=== PATIENT | female | born 1980 | race Caucasian/White ===

== ENCOUNTER 2017-01-19 09:21 | Inpatient (IN) | payer MEDICARE, OTHER ==
--- NOTE | ~2017-01-19 | PN ---
Unit #: [id number] #: [id number] Patient: CIRILO PATEL [id number] [facility] [address] [place] [address] [id number] I MR#: [id number] NAME: CIRILO PATEL. ROOM: [facility] Age: 36 Sex: F Admission Date: 01/19/2017 : 1980 Attending Physician: Da Espinoza M.D. Admitting Physician: Da Espinoza M.D. Primary Care Physician: Frida ADHIKARI PROGRESS NOTES DATE 01/21/2017 DISCUSSION Ms. Patel is a 36-year-old white female who was seen today and chart was reviewed and case was discussed with the staff. She has been anxious, withdrawn and rather seclusive to herself. Meanwhile, she has been cooperative with treatment recommendations as she has been taking the medications and tolerating them fairly well with no reported side effects though has been complaining of significant and persistent anxiety and also stated that she would like to go to intermediate rehab level of care after getting discharged from the hospital. MENTAL STATUS EXAMINATION Young white female who was casually dressed with fair personal hygiene, appears to be in no acute distress or discomfort. She was awake and alert on interaction with intact orientation. Her mood was anxious with congruent affect. She denies any suicidal or homicidal ideations. Also, denies any auditory or visual hallucinations. Her insight and judgement remains slightly impaired. TREATMENT PLAN 1. We will continue her on her current medications and treatment protocol. We will monitor her response and make further adjustments as needed. 2. We will continue to follow up. Dictated by... Naresh Max/samreen TD: 01/22/2017 00:09 JOB #: [id number] Unit #: [id number] #: [id number] Patient: CIRILO PATEL ONOFRE PROGRESS NOTES X Da Espinoza MD PROGRESS NOTE
--- NOTE | ~2017-01-19 | DS ---
Unit #: [id number] #: [id number] Patient: CIRILO PATEL [id number] [facility] [address] [place] [address] [id number] MR#: [id number] NAME: CIRILO PATEL. ROOM: P178 Age: 36 Sex: F Admission Date: 01/19/2017 : 1980 Discharge Date: Attending Physician: Da Espinoza M.D. Primary Care Physician: Frida Mayfield DISCHARGE SUMMARY IDENTIFYING DATA Ms. Patel is a 36-year-old single disabled white female who is a resident of [place], [place] and was self-referred to the hospital. DISCHARGE DIAGNOSES Psychiatric: Bipolar disorder, most recent episode depressed, recurrent, moderate, without psychotic features; opioid dependence, moderate and acute withdrawal. Medical: Gastroesophageal reflux disease. Stressors: Moderate psychosocial stressors. HISTORY OF PRESENT ILLNESS Please see initial psychiatric evaluation for details. PAST PSYCHIATRIC HISTORY Please see initial psychiatric evaluation for details. PAST MEDICAL HISTORY Please see initial psychiatric evaluation for details. HOSPITAL COURSE The patient was [facility] and was oriented to the hospital environment. Routine p.r.n. medications were initiated, and she was started on the detox protocol and was also started back on her home medications, and was closely monitored. She was initially seen to be anxious, restless, withdrawn, and rather seclusive to herself; however, she was able to come off the detox without any complications and then was expressing the desire to be able to go to a long-term rehab level of care and director social service were able to make a few refills; however, the patient was then seen to be going back and forth whether she was to fill it or not; however, she was wanting to go home and as such, it was decided that she will be discharged home and will continue treatment on an outpatient basis. DISCHARGE MEDICATIONS Effexor XR 75 mg a day for depression and trazodone 150 mg a day for sleep. DISCHARGE CONDITION Stable. PROGNOSIS Fair. Unit #: [id number] #: [id number] Patient: CIRILO PATEL Dictated by... Da Espinoza M.D. IAA/modl TD: 01/29/2017 07:07 JOB #: [id number] DISCHARGE SUMMARY X Da Espinoza MD DISCHARGE SUMMARY
--- NOTE | ~2017-01-19 | PN ---
Unit #: [id number] #: [id number] Patient: CIRILO PATEL [id number] [facility] [address] [place] [address] [id number] I MR#: [id number] NAME: CIRILO PATEL. ROOM: P178 Age: 36 Sex: F Admission Date: 01/19/2017 : 1980 Attending Physician: Da Espinoza M.D. Admitting Physician: Da Espinoza M.D. Primary Care Physician: Frida Mayfield [facility] PROGRESS NOTES DATE January 23, 2017 DISCUSSION Ms. Patel is a 36-year-old white female, who was seen today and chart was reviewed and the case was discussed with the staff. She has been anxious, withdrawn, and rather seclusive to herself. Meanwhile, she has been cooperative with the treatment recommendations and she has been taking the medications and tolerating them fairly well. MENTAL STATUS EXAMINATION Young white female, who was casually dressed with fair personal hygiene and appears to be in no acute distress or discomfort. The patient was awake and alert on interaction with intact orientation. Her mood was anxious with a congruent affect. The patient denies any suicidal or homicidal ideations. Her insight and judgment remain slightly impaired. TREATMENT PLAN 1. We will continue her on her current medications and treatment protocol, and will monitor her response to the medications, and make further adjustments as needed. 2. We will continue to followup. Dictated by... Naresh Max/tata TD: 01/25/2017 07:49 JOB #: [id number] [facility] PROGRESS NOTES X Da Espinoza MD PROGRESS NOTE
--- NOTE | ~2017-01-19 | PN ---
Unit #: [id number] #: [id number] Patient: CIRILO PATEL [id number] [facility] [address] [place] [address] [id number] I MR#: [id number] NAME: CIRILO PATEL ROOM: P178 Age: 36 Sex: F Admission Date: 01/19/2017 : 1980 Attending Physician: Da Espinoza M.D. Admitting Physician: Da Espinoza M.D. Primary Care Physician: Frida Mayfield [facility] PROGRESS NOTES DATE January 26, 2017 DISCUSSION Ms. Patel is a 36-year-old white female, who was seen today and chart was reviewed and the case was discussed with the staff. She has been anxious, withdrawn, and father seclusive to herself. Meanwhile, she has been cooperative with the treatment recommendations and she has been taking the medications and tolerating them fairly well with no reported side effects. MENTAL STATUS EXAMINATION Young white female, who was casually dressed with fair personal hygiene and appears to be in no acute distress or discomfort. She was awake and alert on interaction with intact orientation. Her mood was anxious with a congruent affect. The patient denies any suicidal or homicidal ideations. Her insight and judgment remain slightly impaired. TREATMENT PLAN 1. We will continue her on her current medications and treatment protocol, and will monitor her response to the medications, and make further adjustments as needed. 2. We will continue to followup. Dictated by... Naresh Max/tata TD: 01/27/2017 11:38 JOB #: [id number] [facility] PROGRESS NOTES X Da Espinoza MD PROGRESS NOTE
--- NOTE | ~2017-01-19 | PN ---
Unit #: [id number] #: [id number] Patient: CIRILO PATEL [id number] [facility] [address] [place] [address] [id number] I MR#: [id number] NAME: CIRILO PATEL. ROOM: P1 Age: 36 Sex: F Admission Date: 01/19/2017 : 1980 Attending Physician: Da Espinoza M.D. Admitting Physician: Da Espinoza M.D. Primary Care Physician: Frida ANNACE PROGRESS NOTES DATE 01/28/2017 DISCUSSION Ms. Patel is a 36-year-old white female who was seen today and chart was reviewed and case was discussed with the staff. She has been anxious, withdrawn and seclusive to herself. Meanwhile, she has been polite and pleasant and cooperative with treatment recommendations as she has been taking the medications and tolerating them fairly well. MENTAL STATUS EXAMINATION Young white female who was casually dressed with fair personal hygiene, appears to be in no acute distress or discomfort. She was awake and alert on interaction with intact orientation. Her mood was anxious with congruent affect. Her speech was slow and goal-directed. She denies any suicidal or homicidal ideations. Also, denies any auditory or visual hallucinations. Her insight and judgement remains slightly impaired. TREATMENT PLAN 1. We will continue her on her current treatment protocol. We will monitor her response to the medication and make further adjustments as needed. 2. We will continue to follow up. Dictated by... Naresh Max/samreen TD: 01/29/2017 01:52 JOB #: [id number] Unit #: [id number] #: [id number] Patient: CIRILO PATEL PEAYAYO PROGRESS NOTES X Da Espinoza MD PROGRESS NOTE
--- NOTE | ~2017-01-19 | PN ---
Unit #: [id number] #: [id number] Patient: CIRILO PATEL [id number] [facility] [address] [place] [address] [id number] I MR#: [id number] NAME: CIRILO PATEL. ROOM: P1 Age: 36 Sex: F Admission Date: 01/19/2017 : 1980 Attending Physician: Da Espinoza M.D. Admitting Physician: Da Espinoza M.D. Primary Care Physician: Frida ADHIKARI PROGRESS NOTES DATE January 27, 2017 DISCUSSION Ms. Patel is a 36-year-old white female, who was seen today and chart was reviewed and the case was discussed with the staff. She has been anxious, withdrawn, and rather seclusive to herself. Meanwhile, she has been cooperative with the treatment recommendations and she has been taking the medications and tolerating them fairly well with no reported side effects. MENTAL STATUS EXAMINATION Young white female, who was casually dressed with fair personal hygiene and appears to be in no acute distress or discomfort. She was awake and alert on interaction with intact orientation. Her mood was anxious and depressed with a congruent affect. Her speech is slow and goal-directed. The patient denies any suicidal or homicidal ideations, and also denies any auditory or visual hallucinations. Her insight and judgment remain slightly impaired. TREATMENT PLAN 1. We will continue her on her current medications and treatment protocol, and will monitor her response to the medications, and make further adjustments as needed. 2. We will continue to followup. Dictated by... Naresh Max/tata TD: 01/28/2017 08:07 JOB #: [id number] Unit #: [id number] #: [id number] Patient: CIRILO PATEL ONOFRE PROGRESS NOTES X Da Espinoza MD PROGRESS NOTE
--- NOTE | ~2017-01-19 | PN ---
Unit #: [id number] #: [id number] Patient: CIRILO PATEL [id number] [facility] [address] [place] [address] [id number] I MR#: [id number] NAME: CIRILO PATEL. ROOM: [facility] Age: 36 Sex: F Admission Date: 01/19/2017 : 1980 Attending Physician: Da Espinoza M.D. Admitting Physician: Da Espinoza M.D. Primary Care Physician: Frida ADHIKARI PROGRESS NOTES DATE OF SERVICE: 01/20/2017 SUBJECTIVE Ms. Patel is a 36-year-old white female with dual diagnosis of mood disorder and substance abuse, who was seen today and chart was reviewed and the case was discussed with the staff. She was seen to be anxious, withdrawn, depressed, and rather seclusive to herself. Meanwhile, she has been cooperative with the treatment recommendations and has been taking the medications and tolerating them fairly well with no reported side effects. MENTAL STATUS EXAMINATION Young white female, who was casually dressed with fair personal hygiene, appears to be in slight distress and discomfort. She was awake and alert with impaired attention and concentration. Her mood was anxious with a congruent affect. Her speech was slow and restricted in content. She reports having suicidal ideation, but denies any homicidal ideation. Her insight and judgment remain slightly impaired. TREATMENT PLAN 1. We will continue her on her current medications and treatment protocol. We will monitor her response to the medications and make further adjustments as needed. 2. We will continue to follow up. Dictated by... Naresh Max/arleth TD: 01/20/2017 11:23 JOB #: [id number] Unit #: [id number] #: [id number] Patient: CIRILO PATELYAYO PROGRESS NOTES X Da Espinoza MD PROGRESS NOTE
--- NOTE | ~2017-01-19 | PN ---
Unit #: [id number] #: [id number] Patient: CIRILO PATEL [id number] [facility] [address] [place] [address] [id number] I MR#: [id number] NAME: CIRILO PATEL. ROOM: P178 Age: 36 Sex: F Admission Date: 01/19/2017 : 1980 Attending Physician: Da Espinoza M.D. Admitting Physician: Da Espinoza M.D. Primary Care Physician: Frida Mayfield [facility] PROGRESS NOTES DATE 01/24/2017 DISCUSSION Ms. Patel is a 36-year-old white female who was seen today and chart was reviewed and case was discussed with the staff. She has been anxious, withdrawn and rather seclusive to herself though has been cooperative with treatment recommendations as she has been taking the medications and tolerating them fairly well. MENTAL STATUS EXAMINATION Young white female who was casually dressed with fair personal hygiene, appears to be in no acute distress or discomfort. She was awake and alert on interaction with intact orientation. Her mood was anxious and depressed with congruent affect. Her speech was slow and goal-directed. She denies any suicidal or homicidal ideations. Also, denies any auditory or visual hallucinations. Her insight and judgement remains slightly impaired. TREATMENT PLAN 1. We will continue her on her current medications and treatment protocol. We will monitor her response to the medication and make further adjustments as needed. 2. We will continue to follow up. Dictated by... Naresh Max/samreen TD: 01/26/2017 02:09 JOB #: [id number] Unit #: [id number] #: [id number] Patient: CIRILO PATEL [facility] PROGRESS NOTES X Da Espinoza MD PROGRESS NOTE
--- NOTE | ~2017-01-19 | HP ---
Unit #: [id number] #: [id number] Patient: DARLIN PATEL [id number] [place] [address] [id number] I MR#: [id number] NAME: DARLIN PATEL. ROOM: [facility] Age: 36 Sex: F Admission Date: 01/19/2017 : 1980 Attending Physician: Da Espinoza M.D. Admitting Physician: Da Espinoza M.D. Primary Care Physician: Frida Mayfield HISTORY AND PHYSICAL HISTORY OF PRESENT ILLNESS Darlin is a 36 year old admitted to [facility] because of her continued polysubstance abuse. PAST MEDICAL HISTORY 1. Long history of illicit substance abuse. 2. GERD. 3. History of interstitial cystitis. PAST SURGICAL HISTORY 1. Appendectomy. 2. Pelvic lap x2. 3. Right foot. ALLERGIES Demerol, Haldol. SOCIAL HISTORY Smokes one pack per day. Drinks alcohol on occasion. Has a long history of opioid abuse to include heroin. FAMILY HISTORY Medically noncontributory. REVIEW OF SYSTEMS CONSTITUTIONAL: No fever or chills. HEENT: Denies any sore throat, ear pain or runny nose. CARDIOVASCULAR: Denies chest pain, irregular heart rhythm or palpitations. CHEST: Denies shortness of breath or cough. No hemoptysis. GASTROINTESTINAL: Denies nausea, vomiting, diarrhea or chronic constipation. ENDOCRINE: Denies history of increased thirst or urination. No recent significant weight loss or gain. GENITOURINARY: Denies dysuria, frequency, or hematuria. SKIN: Denies any rashes. HEMATOLOGIC: Denies history of increased bleeding or bruising. MUSCULOSKELETAL: Denies any hot, swollen joints. No generalized muscle pain. NEUROLOGIC: Denies problems with vision or speech. No frequent, severe headaches. No numbness, tingling or weakness in any extremities. Denies loss of bladder or bowel control. CURRENT MEDICATIONS Unit #: [id number] #: [id number] Patient: DARLIN PATEL 1. Detox protocol. 2. Effexor XR 75 mg q. day. 3. Trileptal 300 mg b.i.d. 4. Pepcid 20 mg b.i.d. 5. Trazodone 150 mg q.h.s. 6. Nicotine patch 14 mg q. day. PHYSICAL EXAMINATION GENERAL: Alert, well nourished. No apparent distress. VITAL SIGNS: Blood pressure 122/84, heart rate 100, respirations 16, and temperature 98.6. WEIGHT: 145. HEIGHT: 5 feet 6 inches. SKIN: Warm and dry without rash or lesion. HEENT: Normocephalic. TMs not viewed. Oral and nasal passages clear. Conjunctivae clear. PERRLA. EOMs intact. NECK: Supple without lymphadenopathy or thyromegaly. HEART: Regular rate and rhythm without murmur. LUNGS: Clear. ABDOMEN: Soft, nontender. : Not done. EXTREMITIES: No evidence of cyanosis, clubbing or edema. Moves all without focal deficit. NEUROLOGICAL: Grossly within normal limits. Cranial Nerves: II: Visual giron are intact. III, IV AND : Extraocular movements are intact. Pupils are equal, round and reactive to light. V: Facial sensation is grossly normal. VII: Facial movements and expression are normal. VIII: Auditory acuity grossly intact. IX, X: Uvula is midline. Phonation is normal. XI: Patient shrugs shoulders and turns head normally. XII: Tongue protrudes in the midline. Sensory and Motor Function: Sensory and motor sensation is grossly normal. Motor: moves all extremities well. Coordination: Gait is normal. Deep Tendon Reflexes: Intact. IMPRESSION Psychiatric admission. RECOMMENDATIONS PSYCHIATRIC: Per psychiatrist. MEDICAL: I see no contraindication to participate in this facility's activities. MEDICAL PROGNOSIS Good. MEDICAL CONDITION Stable. Dictated by... Surinder VegaAAlem-Kezia. for Naresh Alex/ruth Unit #: [id number] #: [id number] Patient: DARLIN PATEL TD: 01/20/2017 12:07 JOB #: [id number] HISTORY AND PHYSICAL X Ermelinda Neal X HISTORY AND PHYSICAL
--- NOTE | ~2017-01-19 | PN ---
Unit #: [id number] #: [id number] Patient: CIRILO PATEL [id number] [facility] [address] [place] [address] [id number] MR#: [id number] NAME: CIRILO PATEL. ROOM: [facility] Age: 36 Sex: F Admission Date: 01/19/2017 : 1980 Attending Physician: Da Espinoza M.D. Admitting Physician: Da Espinoza M.D. Primary Care Physician: Frida ANNACE PROGRESS NOTES DATE 01/22/2017 DISCUSSION Ms. Patel is a 36-year-old white female who was seen today and chart was reviewed and case was discussed with the staff. She has been anxious, restless, withdrawn, reports still having some significant withdrawal symptoms stating that her muscles are twitching and jerking and her body is hurting and she has been anxious and restless. Meanwhile, she has also expressed a desire to be able to go to long-term rehabilitation level of care and to start planning has been advised accordingly. MENTAL STATUS EXAMINATION Young white female who was casually dressed with fair personal hygiene and appears to be in no acute distress or discomfort. She was awake and alert on interaction with intact orientation. Her mood was anxious with congruent affect. She denies any suicidal or homicidal ideation and also denies any auditory or visual hallucinations. Her insight and judgement remains slightly impaired. TREATMENT PLAN 1. Will continue on current medications and treatment protocol. Will monitor her response to the medications and make further adjustments as needed. 2. Will continue to follow up. Dictated by... Naresh Max/pierce TD: 01/22/2017 16:08 JOB #: [id number] Unit #: [id number] #: [id number] Patient: CIRILO PATELYAYO PROGRESS NOTES X Da Espinoza MD PROGRESS NOTE
--- NOTE | ~2017-01-19 | PN ---
Unit #: [id number] #: [id number] Patient: CIRILO PATEL [id number] [facility] [address] [place] [address] [id number] I MR#: [id number] NAME: CIRILO PATEL. ROOM: P178 Age: 36 Sex: F Admission Date: 01/19/2017 : 1980 Attending Physician: Da Espinoza M.D. Admitting Physician: Da Espinoza M.D. Primary Care Physician: Frida Mayfield [facility] PROGRESS NOTES DATE OF SERVICE: 01/25/2017 SUBJECTIVE Ms. Patel is a 36-year-old white female, who was seen today and chart was reviewed and the case was discussed with the staff. She has been anxious, withdrawn, and restless, and seclusive to herself. Her detox has fallen off which is persistent detox symptoms. Meanwhile, she has been cooperative with treatment recommendations and has been taking the medications and tolerating them fairly well. MENTAL STATUS EXAMINATION Young white female, who was casually dressed with fair personal hygiene, appears to be in no acute distress or discomfort. She was awake and alert on interaction with intact orientation. Her mood was anxious with a congruent affect. She denies any suicidal or homicidal ideations, and also denies any auditory or visual hallucinations. Her insight and judgment remain slightly impaired. TREATMENT PLAN 1. We will continue her on her current medications and treatment protocol. We will monitor her response to medications and make further adjustments as needed. 2. We will continue to follow up. Dictated by... Naresh Max/arleth TD: 01/26/2017 05:14 JOB #: [id number] [facility] PROGRESS NOTES X Da Espinoza MD PROGRESS NOTE
--- NOTE | ~2017-01-19 | PA ---
Unit #: [id number] #: [id number] Patient: CIRILO PATEL [id number] [facility] [address] [place] [address] [id number] MR#: [id number] NAME: CIRILO PATEL. ROOM: P177 Age: 36 Sex: F Admission Date: 01/19/2017 : 1980 Date of Assessment: Attending Physician: Da Espinoza M.D. Admitting Physician: Da Espinoza M.D. Primary Care Physician: Frida Mayfield PSYCHIATRIC ASSESSMENT DATE OF SERVICE 01/19/2017. IDENTIFYING DATA Ms. Patel is a 36-year-old single disabled white female, who is a resident of [place], [place] and is known to us from previous encounter and was self-referred to the hospital. CHIEF COMPLAINT "I need to detox." HISTORY OF PRESENT ILLNESS Ms. Patel is a 36-year-old white female who was ruled out for mood disorder, substance abuse dependence, who was self-referred to the hospital. Reports that she has been using heroin daily for the past 3 months and has been using at least a gram a day via IV route and has been using IV for the last 4 months and that she has been addicted to heroin for the past 3 years and reports her longest period of sobriety was 7 months, which was last and reports that her last use of heroin was 2 hours before coming to the hospital and added that she is very depressed and has been having suicidal thoughts and she stated "I'm tired of using, I'm tired of the cycle." The patient reports that her drug use makes her depressed and suicidal and that she has been feeling suicidal on and off for about a week. The patient reports increasing depression, anxiety, disturbed sleep, psychomotor retardation, feelings of hopelessness and helplessness, and suicidal ideation with plan to overdose on heroin. The patient reports that she wants to get clean due to seeing her boyfriend overdose and it has scared her and also reports that she is sick of the lifestyle and what has done to her life. Reports that she does have a support group of friends who are sober. SUBSTANCE ABUSE HISTORY The patient reports history of alcohol, cannabis, cocaine, acid, opioids, amphetamine abuse, and currently opioids, particularly IV heroin has been her drug of choice. PAST PSYCHIATRIC HISTORY The patient has had history of inpatient psychiatric hospitalization at [facility] and has done outpatient treatment program. Review of the medical records indicate that she has been diagnosed and treated for bipolar disorder and was on a combination of Effexor and Trileptal, but has been noncompliant with medication as such, has been decompensating. Unit #: [id number] #: [id number] Patient: CIRILO PATEL PAST MEDICAL HISTORY Gastroesophageal reflux disease. ALLERGIES Haldol and meperidine. PERSONAL AND SOCIAL HISTORY A 36-year-old white female, who reports that she is single, unemployed, disabled, and lives by herself and has poor social support system. MENTAL STATUS EXAMINATION Young white female, who was casually dressed with fair personal hygiene, appears to be in no acute distress or discomfort. She was awake and alert on interaction with intact orientation to time, place, and person. Her mood was anxious and depressed with a congruent affect. Her speech was slow and restricted in content. Her thought processes were disorganized with some looseness of associations and suicidal ideations. Her insight and judgment remain significantly impaired. DIAGNOSTIC IMPRESSION Psychiatric: Bipolar disorder, most recent episode depressed, recurrent, moderate, without psychotic features; opioid dependence, moderate and acute withdrawals. Medical: Gastroesophageal reflux disease. Stressors: Moderate psychosocial stressors. TREATMENT PLAN 1. The patient has presented with a history of mood disorder and substance abuse and dependence and has been decompensating and will need inpatient hospitalization for detoxification, safety, and stabilization. We will start her on detox protocol. We will also consider starting her back on her home medications. 2. Supportive therapy was provided to the patient. 3. Safe, structured, and nourishing environment will be reported. ESTIMATED LENGTH OF STAY 5 to 7 days. ABILITY TO HELP SELF Limited. WILLINGNESS TO HELP SELF The patient appears to be willing to help self. STRENGTHS 1. Communicative. 2. Cooperative. PROBLEMS 1. Chronic dysphoric symptoms. 2. Poor social support system. DISCHARGE CRITERIA This will be contingent upon the patient's ability to go through detox without having any significant withdrawal symptoms as well as her ability to stay safe to herself, particularly after discharge from the hospital. Unit #: [id number] #: [id number] Patient: CIRILO PATEL Dictated by..Naresh Escamilla/arleth TD: 01/20/2017 06:38 JOB #: [id number] PSYCHIATRIC ASSESSMENT X Da Espinoza MD PSYCHIATRIC ASSESSMENT
[2017-01-20 12:34] LABS: BASOPHIL# 0.1 X10e3 (0-0.3); BASOPHIL% 1.4 % (0-2.5); EOSINOPHIL# 0.2 X10e3 (0-0.7); EOSINOPHIL% 2.9 % (0.0-7.0); HEMATOCRIT 48.7 % (35.0-45.0); HEMOGLOBIN 15.9 gm/dL (12.0-16.0); LYMPHOCYTE# 1.9 X10e3 (1.0-3.5); LYMPHOCYTE% 27.5 % (17.0-45.0); MEAN CELL VOLUME 91.8 FL (83-96); MEAN CORPUSCULAR HGB CONC 32.7 g/dL (30-36); MEAN PLATELET VOLUME 8.6 FL (6.5-11.5); MONOCYTE# 0.5 X10e3 (0-1.0); MONOCYTE% 7.7 % (3.0-12.0); NEUTROPHIL# 4.2 X10e3 (1.5-7.1); NEUTROPHIL% 60.5 % (40-75); PLATELET COUNT 289 X10e3 (140-420); RED BLOOD COUNT 5.31 X10e (3.90-5.30); RED CELL DISTRIBUTION WIDTH 15.1 % (11.0-15.5)
[2017-01-20 12:41] LABS: DIFF IND NO
[2017-01-20 12:56] LABS: THYROID STIMULATING HORMONE 0.63 uIU/ml (0.34-5.60)
[2017-01-20 12:57] LABS: ALBUMIN SERUM 3.9 g/dL (3.5-5.0); ALKALINE PHOSPHATASE 82 U/L (32-92); ALT (SGPT) 18 U/L (10-40); AST (SGOT) 20 U/L (10-42); BILIRUBIN,TOTAL 0.3 mg/dL (0.2-2.0); BLOOD UREA NITROGEN 9 mg/dL (9-23); BUN/CREATININE RATIO 11.25; CALCIUM SERUM 9.2 mg/dL (8.4-10.2); CARBON DIOXIDE 26 mmol/L (22-31); CHLORIDE 104 mmol/L (100-111); CREATININE SERUM 0.8 mg/dL (0.6-1.4); GLOM FILT RATE Estimated ABOVE60 mL/min (>60); GLUCOSE FASTING 80 mg/dL (70-110); POTASSIUM 4.3 mmol/L (3.5-5.1); PROTEIN TOTAL SERUM 6.6 g/dL (6.0-8.3); SODIUM 137 mmol/L (135-145)
[2017-01-20 13:02] LABS: FREE THYROXIN (T4) 0.99 ng/dL (0.58-1.64)
[2017-01-21 09:51] LABS: URINE APPEARANCE CLEAR; URINE BILIRUBIN NEG (NEG); URINE BLOOD NEG (NEG); URINE COLOR YELLOW; URINE GLUCOSE NEG (NEG); URINE KETONE NEG (NEG); URINE LEUKOCYTE ESTERASE NEG (NEG); URINE NITRATE NEG (NEG); URINE PROTEIN NEG (NEG); URINE SPECIFIC GRAVITY 1.009 (1.003-1.035); URINE UROBILINOGEN 0.2 MG/DL (NEG)
[2017-01-21 10:18] LABS: AMPHETAMINE NEG (NEG); BARBITURATES NEG (NEG); BENZODIAZEPINES NEG (NEG); COCAINE NEG (NEG); MARIJUANA NEG (NEG); OPIATES POS (NEG); TRICYCLIC ANTIDEPRESSANTS NEG (NEG); U METHADONE NEG (NEG)
[2017-01-24 01:12] LABS: HA AB IGM (HEPPAN) Nonreactive (Nonreactive); HB CORE AB IGM (HEPPAN) Nonreactive (Nonreactive); HB S AG (HEPPAN) Nonreactive (Nonreactive); HEP C AB (HEPPAN) Nonreactive (Nonreactive); HEP C AB SIGNAL TO CUTOFF 0.01 ratio (<1.00)
== END 2017-01-29 09:30 | DRG 885 ==
LOC: POF 09:21 → P1E 09:25
PROVIDERS: Psychiatry & Neurology Psychiatry
PROC: HZ2ZZZZ Detoxification Services for Substance Abuse Treatment (ICD-10-PCS; principal; 2017-01-19)
DX: F31.32 Bipolar disorder, current episode depressed, moderate (principal); F11.23 Opioid dependence with withdrawal; K21.9 Gastro-esophageal reflux disease without esophagitis; F17.210 Nicotine dependence, cigarettes, uncomplicated
CPT/HCPCS: 80053; 80074; 80307; 81003; 84439; 84443; 84703; 85025; 86592; 87806

== ENCOUNTER 2017-01-29 15:05 | Emergency (ER) | payer MEDICARE, OTHER | END 2017-01-29 15:30 | disposition left against medical advice (07) | LOC: CED 15:05 | DX: Z53.21 Procedure and treatment not carried out due to patient leaving prior to being seen by health care provider (principal) ==

== ENCOUNTER 2017-03-22 11:50 | Inpatient (IN) | payer MEDICARE, OTHER ==
--- NOTE | ~2017-03-22 | PN ---
Unit #: [id number] #: [id number] Patient: CIRILO PATEL [id number] [facility] [address] [place] [address] [id number] MR#: [id number] NAME: CIRILO PATEL. ROOM: [facility] Age: 36 Sex: F Admission Date: 03/22/2017 : 1980 Attending Physician: Da Espinoza M.D. Admitting Physician: Da Espinoza M.D. Primary Care Physician: Frida ADHIKARI PROGRESS NOTES DATE March 24, 2017 DISCUSSION Ms. Patel is a 26-year-old white female, with substance abuse and mood disorder, who was seen today and chart was reviewed and the case was discussed with the staff. She was anxious, withdrawn, and was rather seclusive to herself. She has been cooperative with the treatment recommendations and she has been taking the medications and tolerating them fairly well with no reported side effects. MENTAL STATUS EXAMINATION Young white female, who was casually dressed with fair personal hygiene and appears to be in no acute distress or discomfort. She was awake and alert on interaction with intact orientation. Her mood was anxious with a congruent affect. Her speech is slow and goal-directed. The patient denies any suicidal or homicidal ideations. Her insight and judgment remain slightly impaired. TREATMENT PLAN 1. We will continue her on her current medications and treatment protocol, and will monitor her response to the medications, and make further adjustments as needed. 2. We will continue to followup. Dictated by... Naresh Max/tata TD: 03/24/2017 10:48 JOB #: [id number] Unit #: [id number] #: [id number] Patient: CIRILO PATEL PROGRESS NOTES Page 1 of 1 X Da Espinoza MD PROGRESS NOTE
--- NOTE | ~2017-03-22 | PN ---
Unit #: [id number] #: [id number] Patient: CIRILO PATEL [id number] [facility] [address] [place] [address] [id number] MR#: [id number] NAME: CIRILO PATEL. ROOM: P176 Age: 36 Sex: F Admission Date: 03/22/2017 : 1980 Attending Physician: Da Espinoza M.D. Admitting Physician: Da Espinoza M.D. Primary Care Physician: Frida ADHIKARI PROGRESS NOTES DATE 03/25/2017 DISCUSSION Ms. Patel is a 36-year-old white female who was seen today and chart was reviewed and case was discussed with the staff. She has been complaining of persistent anxiety, depression and sleep disturbance at night. Meanwhile, she has been trying to get into long-term rehab program either in [place] or and social problems specialist have been making referrals. MENTAL STATUS EXAMINATION Young white female who was casually dressed with fair personal hygiene and appears to be in no acute distress or discomfort. She was awake and alert on interaction with intact orientation. Her mood was anxious with congruent affect. She denies any suicidal or homicidal ideations. Her insight and judgement remains slightly impaired. TREATMENT PLAN 1. We will continue on current medications and treatment protocol. Will monitor her response to the medications and make further adjustments as needed. 2. Will continue to follow up. Dictated by... Naresh Max/pierce TD: 03/25/2017 15:12 JOB #: [id number] Unit #: [id number] #: [id number] Patient: CIRILO PATEL PROGRESS NOTES Page 1 of 1 X Da Espinoza MD PROGRESS NOTE
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
--- NOTE | ~2017-03-22 | PN ---
Unit #: [id number] #: [id number] Patient: CIRILO PATEL [id number] [facility] [address] [place] [address] [id number] MR#: [id number] NAME: CIRILO PATEL. ROOM: [facility] Age: 36 Sex: F Admission Date: 03/22/2017 : 1980 Attending Physician: Da Espinoza M.D. Admitting Physician: Da Espinoza M.D. Primary Care Physician: Frida ADHIKARI PROGRESS NOTES DATE 03/23/2017 DISCUSSION Ms. Patel is a 36-year-old white female with substance abuse and mood disorder who was seen today and chart was reviewed and case was discussed with the staff. She has been anxious, withdrawn and rather seclusive to herself. Meanwhile, she has been cooperative with treatment recommendations and has been taking medications and tolerating them fairly well with no reported side effects. MENTAL STATUS EXAMINATION Young white female who was casually dressed with fair personal hygiene and appears to be in no acute distress or discomfort. She was awake and alert on interaction with intact orientation. Her mood was anxious with congruent affect. Her speech is slow and goal-directed. She denies any suicidal or homicidal ideations and also denies any auditory or visual hallucinations. Her insight and judgement remains slightly impaired. TREATMENT PLAN 1. Will continue on current medications and treatment protocol. Will monitor her response to the medications and make further adjustments as needed. 2. Will continue to follow up. Dictated by... Naresh Max/pierce TD: 03/23/2017 17:35 JOB #: [id number] Unit #: [id number] #: [id number] Patient: CIRILO PATEL PROGRESS NOTES Page 1 of 1 X Da Espinoza MD PROGRESS NOTE
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
--- NOTE | ~2017-03-22 | PN ---
Unit #: [id number] #: [id number] Patient: CIRILO PATEL [id number] [facility] [address] [place] [address] [id number] MR#: [id number] NAME: CIRILO PATEL. ROOM: P173 Age: 36 Sex: F Admission Date: 03/22/2017 : 1980 Attending Physician: Da Espinoza M.D. Admitting Physician: Da Espinoza M.D. Primary Care Physician: Frida ADHIKARI PROGRESS NOTES DATE 03/30/2017 DISCUSSION Ms. Patel is a 36-year-old white female who was seen today, chart was reviewed and case was discussed with the staff. She reports still having some anxiety but her social services designee is trying residential facility in [place]. Meanwhile, she has been taking medications and tolerating them fairly well with no reported side effects. MENTAL STATUS EXAMINATION Young white female who was casually dressed with fair personal hygiene and appears to be in no acute distress or discomfort. Patient was awake and alert on interaction with intact orientation. Her mood was anxious with a congruent affect. Patient denies any suicidal or homicidal ideation, but also denies any audiovisual hallucinations. Her insight and judgment remain slightly impaired. TREATMENT PLAN Will continue on current medications and treatment protocol. We will monitor her response to medication and make further adjustments as needed. We will continue to follow up. Dictated by... Naresh Max/brian TD: 03/30/2017 13:15 JOB #: [id number] Unit #: [id number] #: [id number] Patient: CIRILO PATELYAYO PROGRESS NOTES Page 1 of 1 X Da Espinoza MD PROGRESS NOTE
--- NOTE | ~2017-03-22 | PN ---
Unit #: [id number] #: [id number] Patient: CIRILO PATEL [id number] [facility] [address] [place] [address] [id number] MR#: [id number] NAME: CIRILO PATEL. ROOM: 73 Age: 36 Sex: F Admission Date: 03/22/2017 : 1980 Attending Physician: Da Espinoza M.D. Admitting Physician: Da Espinoza M.D. Primary Care Physician: Frida ADHIKARI PROGRESS NOTES DATE 03/28/2017 DISCUSSION Ms. Patel is a 36-year-old white female who was seen today and chart was reviewed and case was discussed with the staff. She has been anxious, withdrawn and rather seclusive to herself. Meanwhile, she has been cooperative with treatment recommendations as she has been taking the medications and tolerating them fairly well with no reported side effects. MENTAL STATUS EXAMINATION Young white female who was casually dressed with fair personal hygiene, appears to be in no acute distress or discomfort. She was awake and alert on interaction with intact orientation. Her mood was anxious and depressed with congruent affect. Her speech was slow and goal-directed. She denies any suicidal or homicidal ideations. Her insight and judgement remains slightly impaired. TREATMENT PLAN 1. We will continue her on her current medications and treatment protocol. We will monitor her response to the medication and make further adjustments as needed. 2. We will continue to follow up. Dictated by... Naresh Max/samreen TD: 03/29/2017 05:27 JOB #: [id number] Unit #: [id number] #: [id number] Patient: CIRILO PATEL ONOFRE PROGRESS NOTES Page 1 of 1 X Da Espinoza MD PROGRESS NOTE
--- NOTE | ~2017-03-22 | PN ---
Unit #: [id number] #: [id number] Patient: CIRILO PATEL [id number] [facility] [address] [place] [address] [id number] I MR#: [id number] NAME: CIRILO PATEL. ROOM: P173 Age: 36 Sex: F Admission Date: 03/22/2017 : 1980 Attending Physician: Da Espinoza M.D. Admitting Physician: Da Espinoza M.D. Primary Care Physician: Frida ADHIKARI PROGRESS NOTES DATE 03/27/2017 DISCUSSION Ms. Patel is a 36-year-old white female who was seen today and chart was reviewed and case was discussed with the staff. She has been anxious, withdrawn though has not shown any agitation, irritability and has been cooperative with treatment recommendations and has been taking the medication and tolerating them fairly well with no reported side effects. MENTAL STATUS EXAMINATION Young white female who was casually dressed with fair personal hygiene, appears to be in no acute distress or discomfort. She was awake and alert on interaction with intact orientation. Her mood was anxious with congruent affect. She denies any suicidal or homicidal ideations. Her insight and judgement remains slightly impaired. TREATMENT PLAN 1. We will continue her on her current medications and treatment protocol. We will monitor her response and make further adjustments as needed. 2. We will continue to follow up. Dictated by... Naresh Max/samreen TD: 03/28/2017 04:24 JOB #: [id number] Unit #: [id number] #: [id number] Patient: CIRILO PATEL PROGRESS NOTES Page 1 of 1 X Da Espinoza MD PROGRESS NOTE
--- NOTE | ~2017-03-22 | PN ---
Unit #: [id number] #: [id number] Patient: CIRILO PATEL [id number] [facility] [address] [place] [address] [id number] MR#: [id number] NAME: CIRILO PATEL ROOM: P176 Age: 36 Sex: F Admission Date: 03/22/2017 : 1980 Attending Physician: Da Espinoza M.D. Admitting Physician: Da Espinoza M.D. Primary Care Physician: Frida ADHIKARI PROGRESS NOTES DATE OF SERVICE 03/26/2017 DISCUSSION Ms. Patel is a 36-year-old white female who was seen today. Chart was reviewed and case was discussed with the staff. She has been anxious, withdrawn, and rather seclusive to herself. Meanwhile, she has been cooperative with the treatment recommendations and has been taking the medications and tolerating them fairly well with no reported side effects. MENTAL STATUS EXAMINATION Young white female who is casually dressed with fair personal hygiene, appears to be in no acute distress or discomfort. She was awake and alert on interaction with intact orientation. Her mood is anxious with congruent affect. She denies any suicidal or homicidal ideations. Her insight and judgment remain slightly impaired. TREATMENT PLAN 1. We will continue her on her current medications and treatment protocol. We will monitor her response to the medications and make further adjustments as needed. 2. We will continue to follow up. Dictated by... Da Espinoza M.D. IAA/bzg TD: 03/26/2017 09:13 JOB #: [id number] [facility] PROGRESS NOTES Page 1 of 1 X Da Espinoza MD X PROGRESS NOTE
--- NOTE | ~2017-03-22 | PN ---
Unit #: [id number] #: [id number] Patient: CIRILO PATEL [id number] [facility] [address] [place] [address] [id number] I MR#: [id number] NAME: CIRILO PATEL. ROOM: P173 Age: 36 Sex: F Admission Date: 03/22/2017 : 1980 Attending Physician: Da Espinoza M.D. Admitting Physician: Da Espinoza M.D. Primary Care Physician: Frida ADHIKARI PROGRESS NOTES DATE 03/29/2017 DISCUSSION Ms. Patel is a 36-year-old white female who was seen today and chart was reviewed and case was discussed with the staff. The patient has been anxious, withdrawn and rather seclusive to herself and has been exhibiting some persistent depressive symptoms. Meanwhile, she has been taking the medications and tolerating them fairly well with no reported side effects. MENTAL STATUS EXAMINATION Young white female who was casually dressed with fair personal hygiene, appears to be in no acute distress or discomfort. She was awake and alert on interaction with intact orientation. Her mood was anxious and depressed with congruent affect. She denies any suicidal or homicidal ideations. Her insight and judgement remains slightly impaired. TREATMENT PLAN 1. We will continue her on her current medications and treatment protocol. We will monitor her response to the medication and make further adjustments as needed. 2. We will continue to follow up. Dictated by... Naresh Max/samreen TD: 03/30/2017 04:21 JOB #: [id number] Unit #: [id number] #: [id number] Patient: CIRILO PATEL ONOFRE PROGRESS NOTES Page 1 of 1 X Da Espinoza MD PROGRESS NOTE
[2017-03-23 09:35] LABS: BASOPHIL# 0.1 X10e3 (0-0.3); EOSINOPHIL# 0.3 X10e3 (0-0.7); EOSINOPHIL% 2.7 % (0.0-7.0); HEMATOCRIT 49.1 % (35.0-45.0); LYMPHOCYTE# 1.8 X10e3 (1.0-3.5); LYMPHOCYTE% 15.2 % (17.0-45.0); MEAN CELL VOLUME 90.5 FL (83-96); MEAN CORPUSCULAR HEMOGLOBIN 29.6 PG (28-34); MEAN CORPUSCULAR HGB CONC 32.7 g/dL (30-36); MEAN PLATELET VOLUME 9.1 FL (6.5-11.5); MONOCYTE# 0.6 X10e3 (0-1.0); MONOCYTE% 4.9 % (3.0-12.0); NEUTROPHIL# 9.1 X10e3 (1.5-7.1); NEUTROPHIL% 76.2 % (40-75); PLATELET COUNT 358 X10e3 (140-420); RED BLOOD COUNT 5.42 X10e (3.90-5.30); RED CELL DISTRIBUTION WIDTH 14.1 % (11.0-15.5)
[2017-03-23 09:53] LABS: DIFF IND NO
[2017-03-23 09:54] LABS: ALBUMIN SERUM 4.1 g/dL (3.5-5.0); BILIRUBIN,TOTAL 0.7 mg/dL (0.2-2.0); BUN/CREATININE RATIO 18.57; CALCIUM SERUM 9.3 mg/dL (8.4-10.2); CREATININE SERUM 0.7 mg/dL (0.6-1.4); GLOM FILT RATE Estimated 110.7 mL/min (>60); POTASSIUM 4.5 mmol/L (3.5-5.1); PROTEIN TOTAL SERUM 7.1 g/dL (6.0-8.3)
[2017-03-23 12:50] LABS: URINE APPEARANCE TURBID; URINE BILIRUBIN NEG (NEG); URINE BLOOD NEG (NEG); URINE COLOR DK YELLOW; URINE GLUCOSE NEG (NEG); URINE KETONE 1+ (NEG); URINE LEUKOCYTE ESTERASE NEG (NEG); URINE NITRATE NEG (NEG); URINE PH 5.5 (5-8); URINE PROTEIN NEG (NEG); URINE SPECIFIC GRAVITY 1.036 (1.003-1.035)
[2017-03-23 18:36] LABS: AMPHETAMINE POS (NEG); BARBITURATES NEG (NEG); BENZODIAZEPINES POS (NEG); COCAINE POS (NEG); MARIJUANA NEG (NEG); OPIATES POS (NEG); TRICYCLIC ANTIDEPRESSANTS NEG (NEG); U METHADONE NEG (NEG)
== END 2017-03-30 22:20 | disposition home or self-care (01) | DRG 885 ==
LOC: P1E 11:50
PROVIDERS: Psychiatry & Neurology Psychiatry
PROC: HZ2ZZZZ Detoxification Services for Substance Abuse Treatment (ICD-10-PCS; principal; 2017-03-22)
DX: F31.32 Bipolar disorder, current episode depressed, moderate (principal); F11.20 Opioid dependence, uncomplicated; I10 Essential (primary) hypertension; F19.10 Other psychoactive substance abuse, uncomplicated; K21.9 Gastro-esophageal reflux disease without esophagitis
CPT/HCPCS: 80053; 80307; 81003; 84703; 85025

== ENCOUNTER 2017-04-30 12:00 | Inpatient (IN) | payer MEDICARE, OTHER ==
--- NOTE | ~2017-04-30 | PN ---
Unit #: [id number] #: [id number] Patient: CIRILO PATEL [id number] [facility] [address] [place] [address] [id number] I MR#: [id number] NAME: CIRILO PATEL. ROOM: P181 Age: 37 Sex: F Admission Date: 04/30/2017 : 1980 Attending Physician: Da Espinoza M.D. Admitting Physician: Da Espinoza M.D. Primary Care Physician: Frida ADHIKARI PROGRESS NOTES DATE 05/05/2017 DISCUSSION Ms. Patel is a 37-year-old white female with substance abuse and mood disorder who was seen today and chart was reviewed and case was discussed with the staff. The patient has been anxious, withdrawn and rather seclusive to herself as she laying in her bed and was unable to get up and interact very much. Meanwhile, she has been cooperative with treatment recommendation. She has been taking medications and tolerating them fairly well with no reported side effects. MENTAL STATUS EXAMINATION Young white female who was casually dressed with fair personal hygiene, appears to be in no acute distress or discomfort. She was awake and alert on interaction with intact orientation. Her mood was anxious with congruent affect. She denies any suicidal or homicidal ideations. Her insight and judgement remains slightly impaired. TREATMENT PLAN 1. We will continue her on her current medications and treatment protocol. We will monitor her response to the and make further adjustments as needed. 2. We will continue to follow up. Dictated by... Naresh Max/samreen TD: 05/05/2017 23:54 JOB #: [id number] Unit #: [id number] #: [id number] Patient: CIRILO PATEL PROGRESS NOTES Page 1 of 1 X Da Espinoza MD PROGRESS NOTE
--- NOTE | ~2017-04-30 | PN ---
Unit #: [id number] #: [id number] Patient: CIRILO PATEL [id number] [facility] [address] [place] [address] [id number] MR#: [id number] NAME: CIRILO PATEL. ROOM: P181 Age: 37 Sex: F Admission Date: 04/30/2017 : 1980 Attending Physician: Da Espinoza M.D. Admitting Physician: Da Espinoza M.D. Primary Care Physician: Frida May[place] [facility] PROGRESS NOTES DATE 05/04/2017 DISCUSSION Ms. Patel is a 37-year-old white female who was seen today and chart was reviewed and case was discussed with the staff. She has been anxious, withdrawn and rather seclusive to herself. Meanwhile, she has been cooperative with treatment recommendations as she has been taking the medications and tolerating them fairly well with no reported side effects. MENTAL STATUS EXAMINATION Young white female who was casually dressed with fair personal hygiene, appears to be in no acute distress or discomfort. She was awake and alert on interaction with intact orientation. Her mood was anxious with congruent affect. She denies any suicidal or homicidal ideations. Her insight and judgement remains slightly impaired. TREATMENT PLAN 1. We will continue her on her current medications and treatment protocol. We will monitor her response to the medication and make further adjustments as needed. 2. We will continue to follow up. Dictated by... Naresh Max/samreen TD: 05/05/2017 02:01 JOB #: [id number] Unit #: [id number] #: [id number] Patient: CIRILO PATELYAYO PROGRESS NOTES Page 1 of 1 X Da Espinoza MD PROGRESS NOTE
--- NOTE | ~2017-04-30 | PN ---
Unit #: [id number] #: [id number] Patient: CIRILO PATEL [id number] [facility] [address] [place] [address] [id number] I MR#: [id number] NAME: CIRILO PATEL. ROOM: P181 Age: 37 Sex: F Admission Date: 04/30/2017 : 1980 Attending Physician: Da Espinoza M.D. Admitting Physician: Da Espinoza M.D. Primary Care Physician: Frida ADHIKARI PROGRESS NOTES DATE OF SERVICE: 05/03/2017 SUBJECTIVE Ms. Patel is a 37-year-old white female who was seen today and chart was reviewed and case was discussed with the staff. She has been anxious, withdrawn, and rather seclusive to herself. Meanwhile, she has been cooperative with treatment recommendations and has been taking the medications and tolerating them fairly well with no reported side effects. MENTAL STATUS EXAMINATION Young white female who was casually dressed with fair personal hygiene, appears to be in no acute distress or discomfort. She was awake and alert on interaction with intact orientation. Her mood was anxious with a congruent affect. She denies any suicidal or homicidal ideations. Her insight and judgment remain slightly impaired. TREATMENT PLAN 1. We will continue her on her current medications and treatment protocol. We will monitor her response to the medications and make further adjustments as needed. 2. We will continue to follow up. Dictated by... Naresh Max/arleth TD: 05/04/2017 07:10 JOB #: [id number] [facility] PROGRESS NOTES Page 1 of 1 X Da Espinoza MD X PROGRESS NOTE
--- NOTE | ~2017-04-30 | PN ---
Unit #: [id number] #: [id number] Patient: CIRILO PATEL [id number] [facility] [address] [place] [address] [id number] MR#: [id number] NAME: CIRILO PATEL. ROOM: P178 Age: 37 Sex: F Admission Date: 04/30/2017 : 1980 Attending Physician: Da Espinoza M.D. Admitting Physician: Da Espinoza M.D. Primary Care Physician: Frida ADHIKARI PROGRESS NOTES DATE OF SERVICE: 05/02/2017 SUBJECTIVE Ms. Patel is a 37-year-old white female, who was seen today and chart was reviewed and the case was discussed with the staff. She has been anxious, withdrawn, seclusive to herself. Meanwhile, she has been cooperative with treatment recommendations and has been taking the medications and tolerating them fairly well with no reported side effects. MENTAL STATUS EXAMINATION Young white female who was casually dressed with fair personal hygiene, appears to be in no acute distress or discomfort. She was awake and alert on interaction with intact orientation. Her mood was anxious with a congruent affect. She denies any suicidal or homicidal ideations. Her insight and judgment remain slightly impaired. TREATMENT PLAN 1. We will continue on her current medications and treatment protocol. We will monitor her response to the medications and make further adjustments as needed. 2. We will continue to follow up. Dictated by... Naresh Max/arleth TD: 05/04/2017 01:28 JOB #: [id number] [facility] PROGRESS NOTES Page 1 of 1 X Da Espinoza MD X PROGRESS NOTE
--- NOTE | ~2017-04-30 | HP ---
Unit #: [id number] #: [id number] Patient: DARLIN PATEL [id number] [place] [address] [id number] I MR#: [id number] NAME: DARLIN PATEL. ROOM: P178 Age: 37 Sex: F Admission Date: 04/30/2017 : 1980 Attending Physician: Da Espinoza M.D. Admitting Physician: Da Espinoza M.D. Primary Care Physician: Frida Mayfield HISTORY AND PHYSICAL HISTORY OF PRESENT ILLNESS Darlin is a 37 year old admitted to [facility] because of her continued polysubstance abuse. PAST MEDICAL HISTORY 1. Long history of illicit substance abuse. 2. GERD. 3. History of interstitial cystitis. PAST SURGICAL HISTORY 1. Appendectomy. 2. Pelvic lap x2. 3. Right foot. ALLERGIES Demerol, Haldol. SOCIAL HISTORY Smokes 1 pack per day. Drinks alcohol on occasion. Has a history of opioid abuse to include heroin. FAMILY HISTORY Medically noncontributory. REVIEW OF SYSTEMS CONSTITUTIONAL: No fever or chills. HEENT: Denies any sore throat, ear pain or runny nose. CARDIOVASCULAR: Denies chest pain, irregular heart rhythm or palpitations. CHEST: Denies shortness of breath or cough. No hemoptysis. GASTROINTESTINAL: Denies nausea, vomiting, diarrhea or chronic constipation. ENDOCRINE: Denies history of increased thirst or urination. No recent significant weight loss or gain. GENITOURINARY: Denies dysuria, frequency, or hematuria. SKIN: Denies any rashes. HEMATOLOGIC: Denies history of increased bleeding or bruising. MUSCULOSKELETAL: Denies any hot, swollen joints. No generalized muscle pain. NEUROLOGIC: Denies problems with vision or speech. No frequent, severe headaches. No numbness, tingling or weakness in any extremities. Denies loss of bladder or bowel control. CURRENT MEDICATIONS Unit #: [id number] #: [id number] Patient: DARLIN PATEL 1. Detox protocol. 2. Topamax 50 mg b.i.d. 3. Zestril 10 mg daily. 4. Protonix 40 mg daily. 5. Effexor XR 225 mg daily. PHYSICAL EXAMINATION GENERAL: Alert, well-nourished, in no apparent distress. VITAL SIGNS: Blood pressure 140/94, heart rate 80, respirations 16, temperature 98.6. WEIGHT: 155. HEIGHT: 5 feet 6 inches. SKIN: Warm and dry without rash or lesion. HEENT: Normocephalic. TMs not viewed. Oral and nasal passages clear. Conjunctivae clear. PERRLA. EOMs intact. NECK: Supple without lymphadenopathy or thyromegaly. HEART: Regular rate and rhythm without murmur. LUNGS: Clear. ABDOMEN: Soft, nontender. : Not done. EXTREMITIES: No evidence of cyanosis, clubbing or edema. Moves all without focal deficit. NEUROLOGICAL: Grossly within normal limits. Cranial Nerves: II: Visual girno are intact. III, IV AND : Extraocular movements are intact. Pupils are equal, round and reactive to light. V: Facial sensation is grossly normal. VII: Facial movements and expression are normal. VIII: Auditory acuity grossly intact. IX, X: Uvula is midline. Phonation is normal. XI: Patient shrugs shoulders and turns head normally. XII: Tongue protrudes in the midline. Sensory and Motor Function: Sensory and motor sensation is grossly normal. Motor: moves all extremities well. Coordination: Gait is normal. Deep Tendon Reflexes: Intact. IMPRESSION Psychiatric admission. RECOMMENDATIONS PSYCHIATRIC: Per psychiatrist. MEDICAL: See no contraindications to participate in facility's activities. MEDICAL PROGNOSIS Good. MEDICAL CONDITION Stable. Dictated by... Ermelinda Neal P.A.-C. for Naresh Alex/pierce TD: 04/30/2017 22:48 JOB #: [id number] Unit #: [id number] #: [id number] Patient: DARLIN PATEL HISTORY AND PHYSICAL Page 1 of 1 X Ermelinda Neal HISTORY AND PHYSICAL
--- NOTE | ~2017-04-30 | PN ---
Unit #: [id number] #: [id number] Patient: CIRILO PATEL [id number] [facility] [address] [place] [address] [id number] MR#: [id number] NAME: CIRILO PATEL. ROOM: [facility] Age: 37 Sex: F Admission Date: 04/30/2017 : 1980 Attending Physician: Da Espinoza M.D. Admitting Physician: Da Espinoza M.D. Primary Care Physician: Frida ANNACE PROGRESS NOTES DATE OF SERVICE 05/01/2017 DISCUSSION Ms. Patel is a 37-year-old white female who was seen today. Chart was reviewed and case was discussed with the staff. She was seen to be anxious, withdrawn, depressed, and rather seclusive to himself. Meanwhile, she has been cooperative with the treatment recommendations and has been taking the medications and tolerating them fairly well with no reported side effects. MENTAL STATUS EXAMINATION Young white female who is casually dressed with fair personal hygiene, appears to be in no acute distress or discomfort. The patient was awake and alert on interaction with intact orientation. Her mood is anxious with congruent affect. She reports having suicidal ideation but denies any homicidal ideations. Her insight and judgment remain slightly impaired. TREATMENT PLAN 1. We will continue her on her current medications and treatment protocol. We will monitor her response to the medications and make further adjustments as needed. 2. We will continue to follow up. Dictated by... Da Espinoza M.D. IAA/bzg TD: 05/01/2017 13:15 JOB #: [id number] Unit #: [id number] #: [id number] Patient: CIRILO PATEL PROGRESS NOTES Page 1 of 1 X Da Espinoza MD PROGRESS NOTE
--- NOTE | ~2017-04-30 | DS ---
Unit #: [id number] #: [id number] Patient: CIRILO PATEL [id number] [facility] [address] [place] [address] [id number] MR#: [id number] NAME: CIRILO PATEL. ROOM: [facility] Age: 37 Sex: F Admission Date: 04/30/2017 : 1980 Discharge Date: 05/05/2017 Attending Physician: Da Espinoza M.D. Primary Care Physician: Frida Mayfield DISCHARGE SUMMARY IDENTIFYING DATA Ms. Patel is a 37-year-old white female with dual diagnosis of mood disorder and substance abuse, who is known to us from previous encounter, was self referred to the hospital on voluntary basis. DISCHARGE DIAGNOSES Psychiatric: Bipolar disorder, most recent episode depressed, recurrent, moderate, without psychotic features; opioid dependence, moderate, and acute withdrawals. Medical: Gastroesophageal reflux disease and interstitial cystitis. Stressors: Moderate psychosocial stressors. HISTORY OF PRESENT ILLNESS Please see initial psychiatric evaluation for details. PAST PSYCHIATRIC HISTORY Please see initial psychiatric evaluation for details. PAST MEDICAL HISTORY Please see initial psychiatric evaluation for details. HOSPITAL COURSE The [facility] and was oriented to the hospital environment. Routine p.r.n. medications were initiated and she was started back on her home medications and detox protocol was initiated as well. She was continuing doing much better and was able to come out of the detox without any complications and as such was able to go to [facility] rehab level of care. As such, it was decided that she will be discharged home and will continue treatment on an outpatient basis. DISCHARGE CONDITION Stable. PROGNOSIS Fair. Dictated by... Da Espinoza M.D. Unit #: [id number] #: [id number] Patient: CIRILO PATEL IAA/modl TD: 05/14/2017 01:41 JOB #: [id number] DISCHARGE SUMMARY Page 1 of 1 X Da Espinoza MD DISCHARGE SUMMARY
--- NOTE | ~2017-04-30 | PA ---
Unit #: [id number] #: [id number] Patient: CIRILO PATEL [id number] [facility] [address] [place] [address] [id number] MR#: [id number] NAME: CIRILO PATEL. ROOM: P178 Age: 37 Sex: F Admission Date: 04/30/2017 : 1980 Date of Assessment: Attending Physician: Da Espinoza M.D. Admitting Physician: Da Espinoza M.D. Primary Care Physician: Frida Mayfield PSYCHIATRIC ASSESSMENT DATE OF SERVICE 04/30/2017. IDENTIFYING DATA Ms. Patel is a 37-year-old white female, who is a resident of [place], [place], and is very well known to us from previous multiple encounters and was recently discharged from our care and during her previous hospitalization, we made effort to get her into a long-term rehab level of care and residential rehab facility in [place] was pursued and the patient was accepted and the patient was transferred; however, she reports that she got home sick and she did not like there and checked herself out of there and soon afterwards, she relapsed and now she presented herself here. CHIEF COMPLAINT "Being hopeless and suicidal." HISTORY OF PRESENT ILLNESS Ms. Patel is a 37-year-old white female with dual diagnosis of mood disorder and substance abuse, who was self-referred to the hospital reporting feeling hopelessness and suicidal, "I want to kill myself. I'm super depressed and I have been without my psych medicines. I feel awful without drinking." The patient reports feeling depressed for the 3 to 4 days due to not being able to stay sober and reports suicidal ideation with a plan to overdose on any type of medication that she can find and reports drinking 6 to 12 beers on a daily basis and occasionally vodka. She also reports smoking crack cocaine once a week and was in rehab in [place] for just 10 days before she left against medical advice. She reports that she was living in a retirement and the patient got off the [employer] today to [place] and came straight to [facility] and does endorse feelings of hopelessness and helplessness and suicidal ideation. SUBSTANCE ABUSE HISTORY The patient reports extensive history of substance abuse and dependence including alcohol, cocaine, acid, opioids, and amphetamines, and more recently, alcohol and heroin have been her drug of choice as she reports that she has been using IV heroin and has been drinking up to 12 beers on a daily basis. PAST PSYCHIATRIC HISTORY The patient has had a history of multiple inpatient psychiatric treatment including being at [facility], at [facility], and in [place], Unit #: [id number] #: [id number] Patient: CIRILO PATEL and review of the medical records indicate that she has been diagnosed and treated for mood disorder more on the line of bipolar and was on a combination of trazodone, Topamax, Effexor, Risperdal, and Strattera, but has been noncompliant with her medications and as such, has been decompensating. PAST MEDICAL HISTORY The patient's medical history is significant for hypertension. ALLERGIES Haldol and Demerol. PERSONAL AND SOCIAL HISTORY A 37-year-old white female, who reports that she is single, unemployed, and homeless and has poor social support system. MENTAL STATUS EXAMINATION Young white female, who was casually dressed with fair personal hygiene, appears to be in no acute distress or discomfort. She was awake and alert on interaction with intact orientation to time, place, and person. Her mood was anxious and depressed with a congruent affect. Her speech was slow and restricted in content. Her thought processes were disorganized with some looseness of associations and suicidal ideations. Her insight and judgment remain significantly impaired. DIAGNOSTIC IMPRESSION Psychiatric: Bipolar disorder, most recent episode depressed, recurrent, moderate, without psychotic features; opioid dependence, moderate; and alcohol dependence, moderate, in acute withdrawals. Medical: None. Stressors: Moderate psychosocial stressors. TREATMENT PLAN 1. The patient has presented with a history of mood disorder and has been decompensating and will need inpatient hospitalization for safety and stabilization. We will start her back on her home medications and we will adjust the medications and monitor response. 2. Supportive therapy was provided to the patient. ESTIMATED LENGTH OF STAY 7 to 10 days. ABILITY TO HELP SELF Limited. WILLINGNESS TO HELP SELF The patient appears to be willing to help self. STRENGTHS 1. Communicative. 2. Cooperative. PROBLEMS 1. Chronic dysphoric symptoms. 2. Chronic chemical dependency. 3. Poor social support system. DISCHARGE CRITERIA This will be contingent upon the patient's ability to show resolution of Unit #: [id number] #: [id number] Patient: CIRILO PATEL her depression and anxiety and her ability to stay safe to herself, particularly after discharge from the hospital. Dictated by... Naresh Max/arleth TD: 05/01/2017 17:34 JOB #: [id number] PSYCHIATRIC ASSESSMENT Page 1 of 1 X Da Espinoza MD X PSYCHIATRIC ASSESSMENT
[2017-05-01 14:22] LABS: AMPHETAMINE NEG (NEG); BARBITURATES NEG (NEG); BENZODIAZEPINES NEG (NEG); COCAINE POS (NEG); MARIJUANA NEG (NEG); OPIATES NEG (NEG); TRICYCLIC ANTIDEPRESSANTS NEG (NEG); U METHADONE NEG (NEG)
== END 2017-05-05 16:26 | disposition hospice, home (50) | DRG 885 ==
LOC: P1E 15:04
PROVIDERS: Psychiatry & Neurology Psychiatry
PROC: HZ2ZZZZ Detoxification Services for Substance Abuse Treatment (ICD-10-PCS; principal; 2017-04-30)
DX: F31.32 Bipolar disorder, current episode depressed, moderate (principal); F11.20 Opioid dependence, uncomplicated; F10.239 Alcohol dependence with withdrawal, unspecified; K21.9 Gastro-esophageal reflux disease without esophagitis; F17.210 Nicotine dependence, cigarettes, uncomplicated
CPT/HCPCS: 80307; 86592